=== PATIENT | female | born 1980 | race Hispanic/Latino ===

== ENCOUNTER 2018-12-24 02:09 | Emergency (ER) | payer OTHER ==
[2018-12-24] MEDS ORDERED: Ondansetron PF 4 MG/2 ML Vial ONE (02:24)
[2018-12-24] MEDS ORDERED: Dicyclomine 20 MG TAB ONE (02:24)
[2018-12-24 02:49] LABS: BHCG - Serum Negative (NEGATIVE)
[2018-12-24 02:50] LABS: Pregs Control Background? CLEAR/WHITE (CLR/WHITE); Pregs Control Bar Appear? YES (CONTROL BAR)
[2018-12-24] MEDS ORDERED: Morphine 4 MG/ML VIAL ONE (02:52)
[2018-12-24 02:54] LABS: #Basophils 0.1 thou/uL (0.0-0.2); #Lymphocytes 2.1 thou/uL (1.20-3.40); #Monocytes 0.8 thou/uL (0.11-0.59); #Neutrophils 13.8 thou/uL (1.40-6.50); %Basophils 0.5 % (0.0-1.0); %Eosinophils 0.1 % (0.0-10.0); %Lymphocytes 12.4 % (21.0-51.0); Hemoglobin 11.5 g/dL (12.0-16.0); MDiff Complete? YES; Mean Corpuscular HGB CONC 32.9 g/dL (32.0-36.0); Mean Corpuscular Hemoglobin 24.8 pg (27.0-31.0); Mean Corpuscular Volume 75.3 fL (78.0-98.0); Mean Platelet Volume 7.7 fL (7.4-10.4); Microcytosis MODERATE=15-30 cells (100X) (0-5/hpf); Platelet Count 325 thou/uL (130-400); RBC Distribution Width 14.2 % (11.5-14.5); Red Blood Cell (RBC) Count 4.64 mill/uL (4.20-5.40); White Blood Cell (WBC) Count 16.8 thou/uL (4.8-10.8)
[2018-12-24 02:55] LABS: ALT (SGPT) 18 U/L (8-55); AST (SGOT) 23 U/L (5-34); Albumin 4.5 g/dL (3.5-5.0); Alkaline Phosphatase 56 U/L (40-150); Anion Gap 13 mmol/L (10-20); BUN (Urea Nitrogen) 9 mg/dL (7.0-18.7); Bilirubin, Total 0.3 mg/dL (0.2-1.2); Calc. Creatinine Clearance 0 mL/min (70-130); Calcium 9.5 mg/dL (7.8-10.44); Carbon Dioxide 22 mmol/L (22-29); Chloride 106 mmol/L (98-107); Estimated GFR-MDRD Greater than 90; Globulin 3.6 g/dL (2.4-3.5); Glucose 130 mg/dL (70-105); Lipase 29 U/L (8-78); Potassium 3.7 mmol/L (3.5-5.1); Protein, Total 8.1 g/dL (6.0-8.3); Sodium 137 mmol/L (136-145)
[2018-12-24 04:09] LABS: Bilirubin Negative (Negative); Blood, Urine Small (Negative); Clarity Slightly Cloudy (Clear); Glucose, Urine (Dipstick) Negative (Negative); Leukocyte Negative (Negative); Nitrite Negative (Negative); Protein, Urine (Dipstick) Negative (Neg-Trace); Urobilinogen 0.2 mg/dL (0.2-1.0); pH, Urine 5.5 (5.0-9.0)
[2018-12-24 04:19] LABS: Hyaline Casts/LPF NONE SEEN LPF (0-3 Hyaline); RBC/HPF 0-3 HPF (0-3); Squamous Epithelial 0-3 HPF (0-3); WBC/HPF None Seen HPF (0-3)
[2018-12-24 04:22] LABS: Bacteria/HPF None Seen HPF (None Seen)
--- NOTE | 2018-12-24 07:47 | ULT ---
TRANSVAGINAL PELVIC ULTRASOUND: Date: 12/24/18 INDICATION: Pelvic pain. TECHNIQUE: Green scale, color Doppler and spectral Doppler images were obtained of the pelvis. FINDINGS/IMPRESSION: There is mild free fluid in the pelvis. Uterus is retroverted. Uterus measures 9.1 x 4.8 x 4.4 cm. Ri ght ovary measures 3.9 x 2.8 x 1.8 cm. Left ovary measures 3.2 x 2.2 x 1.5 cm. Endometrial stripe kev sures 1.37 cm. Normal flow to both ovaries. POS: [facility]
--- NOTE | 2018-12-24 09:13 | CT ---
PRELIMINARY REPORT/[facility]/EMERGENCY AFTER HOURS PROCEDURE: EXAM: CT Abdomen and Pelvis Without Contrast EXAM DATE/TIME: 12/24/2018 2:59 AM CLINICAL HISTORY: 38 years old, female; Abdominal pain; Localized; Left lower quadrant (llq); Patient HX: Llq pain for 10 hours, hs of tubal, csxn 10 yrs ago. No hs of kidney stones. ; Additional info: 38 F presents w/ l lq abd pain intermittent for the last 9 hours. Lasts for a few minutes, up to 30 min. Sharp pain. No dysuria, no hematuria. Nausea, vomited 3 times TECHNIQUE: Imaging protocol: Axial computed tomography images of the abdomen and pelvis without contrast. López l reformatted images were created and reviewed. Radiation optimization: All CT scans at this facility use at least one of these dose optimization techniques: automated exposure control; mA and/or kV adj ustment per patient size (includes targeted exams where dose is matched to clinical indication); or iterative reconstruction. COMPARISON: No relevant prior studies available. FINDINGS: ABDOMEN: Liver: No solid mass. Gallbladder and bile ducts: Gallbladder demonstrates stones but is without wall thickening or pericho lecystic fluid. Pancreas: No acute pathology. No ductal dilation. Spleen: No solid mass. No splenomegaly. Adrenals: No mass. Kidneys and ureters: No solid mass. No hydronephrosis. Stomach and bowel: Mild to moderate wall thickening over the mid and distal descending colon to the p roximal sigmoid with mild adjacent fluid stranding. There is dense colonic fecal retention. Appendix: No evidence of appendicitis. PELVIS: Bladder: Unremarkable as visualized. Reproductive: Unremarkable as visualized. ABDOMEN and PELVIS: Intraperitoneal space: No free air. Bones/joints: No acute fracture. No dislocation. Soft tissues: Unremarkable. Vasculature: No abdominal aortic aneurysm. Lymph nodes: No enlarged lymph nodes. IMPRESSION: Nonspecific left sided colitis. No perforation or abscess. Normal appendix. Cholelithiasis without other findings of cholecystitis. Thank you for allowing us to participate in the care of your patient. Dictated and Authenticated by: Viraj Mojica MD 12/24/2018 4:46 AM Central Time ([place] & [place]) FINAL REPORT EMERGENCY AFTER HOURS CT STONE PROTOCOL: FINDINGS/IMPRESSION: I agree with the preliminary report provided by Antoinette. POS:
== END 2018-12-24 05:36 | disposition home or self-care (01) ==
LOC: SCSER 02:09
DX: K52.9 Noninfective gastroenteritis and colitis, unspecified (principal)
CPT/HCPCS: 74176; 76856; 80053; 81003; 81015; 83690; 84703; 85025; 93976; 96361; 96374; 96375; J2270; J2405

== ENCOUNTER 2019-05-16 00:24 | Emergency (ER) | payer OTHER ==
[2019-05-16] MEDS ORDERED: Ondansetron PF 4 MG/2 ML Vial ONE (00:48)
[2019-05-16 00:50] LABS: #Basophils 0.1 thou/uL (0.0-0.2); #Eosinphils 0.2 thou/uL (0.0-0.7); #Lymphocytes 3.6 thou/uL (1.20-3.40); #Monocytes 0.7 thou/uL (0.11-0.59); #Neutrophils 6.5 thou/uL (1.40-6.50); %Basophils 0.9 % (0.0-1.0); %Eosinophils 1.4 % (0.0-10.0); %Lymphocytes 32.7 % (21.0-51.0); %Monocytes 6.4 % (0.0-10.0); %Neutrophils 58.6 % (42.0-75.0); Hemoglobin 10.6 g/dL (12.0-16.0); Mean Corpuscular HGB CONC 32.7 g/dL (32.0-36.0); Mean Corpuscular Hemoglobin 25.1 pg (27.0-31.0); Mean Corpuscular Volume 76.6 fL (78.0-98.0); Mean Platelet Volume 7.4 fL (7.4-10.4); Platelet Count 346 thou/uL (130-400); RBC Distribution Width 14.2 % (11.5-14.5); Red Blood Cell (RBC) Count 4.24 mill/uL (4.20-5.40)
[2019-05-16 00:56] LABS: BHCG - Serum Negative (NEGATIVE); Pregs Control Background? CLEAR/WHITE (CLR/WHITE); Pregs Control Bar Appear? YES (CONTROL BAR)
[2019-05-16 01:05] LABS: ALT (SGPT) 28 U/L (8-55); AST (SGOT) 50 U/L (5-34); Alkaline Phosphatase 58 U/L (40-110); Anion Gap 12 mmol/L (10-20); BUN (Urea Nitrogen) 11 mg/dL (7.0-18.7); Bilirubin, Total 0.3 mg/dL (0.2-1.2); Calc. Creatinine Clearance 0 mL/min (70-130); Calcium 9.7 mg/dL (7.8-10.44); Carbon Dioxide 27 mmol/L (22-29); Chloride 106 mmol/L (98-107); Estimated GFR-MDRD 90; Glucose 123 mg/dL (70-105); Lipase 50 U/L (8-78); Potassium 3.8 mmol/L (3.5-5.1); Sodium 141 mmol/L (136-145)
[2019-05-16 01:48] LABS: Bilirubin Negative (Negative); Blood, Urine Negative (Negative); Clarity Clear (Clear); Glucose, Urine (Dipstick) Negative (Negative); Leukocyte Negative (Negative); Nitrite Negative (Negative); Protein, Urine (Dipstick) Negative (Neg-Trace); Urobilinogen 0.2 mg/dL (Less than 2)
[2019-05-16] MEDS ORDERED: Ketorolac Tromethamine 30 MG/ML VIAL ONE (02:43)
--- NOTE | 2019-05-16 08:22 | ULT ---
PRELIMINARY REPORT/[facility]/EMERGENCY AFTER HOURS PROCEDURE: PROCEDURE INFORMATION: Exam: US Abdomen Limited, Right Upper Quadrant Exam date and time: 05/16/2019 1:18 AM Clinical history: 39 years old, female; Abdominal pain; Epigastric TECHNIQUE: Imaging protocol: Real-time ultrasound of the abdomen with image documentation. Examination was focus ed on the right upper quadrant. COMPARISON: No relevant prior studies available. FINDINGS: Liver: No acute findings. No mass. Echogenic/fatty liver. Gallbladder: Multiple gallstones. No gallbladder wall thickening or pericholecystic fluid. Negative M urphys sign. Common bile duct: Measures 5.6 mm in diameter. Pancreas: Limited visualization due to bowel gas. Right kidney: No acute findings. No mass. No hydronephrosis. IMPRESSION: Cholelithiasis. Thank you for allowing us to participate in the care of your patient. Dictated and Authenticated by: Sanford Moore MD 05/16/2019 2:30 AM Central Time ([place] & [place]) FINAL REPORT SONOGRAM RIGHT UPPER QUADRANT PERFORMED ON AN EMERGENCY BASIS: Date: 05/16/19 Time: 0118 hours HISTORY: Right upper quadrant pain. FINDINGS: Findings agree with the preliminary report by Antoinette. Gallstones are confirmed. No evidence of acute bi liary obstruction. POS: [facility]
== END 2019-05-16 02:47 | disposition home or self-care (01) ==
LOC: SCSER 00:24
DX: K80.20 Calculus of gallbladder without cholecystitis without obstruction (principal)
CPT/HCPCS: 36415; 76705; 80053; 81003; 83690; 84703; 85025; 96361; 96372; 96374; 96375; J0500; J1885; J2405